=== PATIENT | female | born 1960 | race Caucasian/White ===

== ENCOUNTER → 2018-09-20 | Outpatient (CLI) | payer OTHER ==
--- NOTE | 2018-09-21 09:56 | RAD ---
EXAM DESCRIPTION: Shoulder,Right 2 or More Views CLINICAL HISTORY: M25.511 COMPARISON: None FINDINGS: 4 views of the right shoulder. No acute fracture, dislocation or aggressive bone lesion is present. Bone mineralization appears normal. No erosions are present. No advanced osteoarthritis is present. No gross soft tissue findings. IMPRESSION: Normal. Electronically signed by: Reginaldo Patel MD 09/21/2018 9:54 AM [facility]
--- NOTE | 2018-09-21 10:02 | RAD ---
EXAM DESCRIPTION: Hand,Right 3 Views CLINICAL HISTORY: 57 yearsFemale, M79.641 COMPARISON: None. IMPRESSION: 3 views of the right hand demonstrate no evidence of acute fracture, dislocation, or destructive osseous lesion. No high-grade degenerative changes. No focal soft tissue swelling. If there is persistent anatomic snuffbox tenderness, repeat wrist imaging to include a scaphoid view is recommended in one week to evaluate for occult scaphoid fracture. Electronically signed by: Michele Wisdom MD 09/21/2018 9:59 AM [facility]
== END ==
LOC: RAD 15:44
PROVIDERS: ATTEND Orthopaedic Surgery
DX: M25.511 Pain in right shoulder (principal); M79.641 Pain in right hand

== ENCOUNTER → 2019-09-14 | Outpatient (CLI) | payer OTHER ==
--- NOTE | 2019-09-14 09:04 | MRI ---
Study: MRI of the Right Shoulder. Indication: ROTATOR CUFF SYNDROME Technique: Multiplanar, multi sequence MRI of the right shoulder was obtained without intravenous contrast. Comparison: None. 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 Type II acromion with moderate lateral downsloping. Small-volume subacromial/subdeltoid bursal fluid. High-grade supraspinatus and infraspinatus tendinosis with scattered low-grade interstitial fissuring throughout the insertional and critical zone fibers of both tendons. Subscapularis and teres minor tendons intact. Grade 1 fatty infiltration rotator cuff musculature. Long head biceps tendon intact. Free edge truncation/degeneration of the superior labrum and posterior labrum. Minimal glenohumeral osteoarthritis with a tiny joint effusion. No acute fracture. Impression: Supraspinatus and infraspinatus tendinosis with scattered interstitial fissuring throughout both tendon insertions. Grade 1 fatty infiltration rotator cuff musculature. Free edge truncation and degeneration superior labrum and posterior labrum. Minimal glenohumeral joint osteoarthritis with a tiny joint effusion. 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 Small-volume subacromial/subdeltoid bursal fluid. Electronically signed by: Patrice Degroot MD 09/14/2019 9:03 AM [facility]
== END ==
LOC: MRI 06:56
PROVIDERS: ATTEND Orthopaedic Surgery
DX: Z01.818 Encounter for other preprocedural examination (principal); M75.101 Unspecified rotator cuff tear or rupture of right shoulder, not specified as traumatic; M19.011 Primary osteoarthritis, right shoulder; M67.911 Unspecified disorder of synovium and tendon, right shoulder; M75.91 Shoulder lesion, unspecified, right shoulder; M62.89 Other specified disorders of muscle

== ENCOUNTER 2019-09-24 05:33 | Day surgery (SDC) | payer OTHER ==
[2019-09-24] MEDS ORDERED: SODIUM CHL 0.9% 100ML MINI-BAG 100 ML IVPB ONE (06:43)
[2019-09-24] MEDS ORDERED: MIDAZOLAM INJ 2 MG/2 ML VIAL ONE (07:11)
[2019-09-24] MEDS ORDERED: fentaNYL CITRATE INJ 50 MCG/ML AMP ONE (07:11)
[2019-09-24] MEDS: LACTATED RINGERS 1,000 ML ONE (07:15)
[2019-09-24] MEDS: ceFAZolin SODIUM 1 GM VIAL ONE ×2 (07:39→08:05)
[2019-09-24] MEDS: BUPIVACAINE 0.25% INJ 30 ML VIAL INJ ONE (07:50)
[2019-09-24] MEDS: LIDOCAINE 1% 10 ML VIAL INJ ONE (07:50)
[2019-09-24] MEDS: VANCOMYCIN HCL INJ 1,000 MG VIAL IVPB ONE (08:05)
[2019-09-24 08:58] VITALS: BP 132/81; TEMP 97.8; O2SAT 99
--- NOTE | 2019-09-24 09:07 | OP ---
DATE OF PROCEDURE: 09/24/19 PREOPERATIVE DIAGNOSIS: 1. Left carpal tunnel syndrome. POSTOPERATIVE DIAGNOSIS: 1. Left carpal tunnel syndrome. PROCEDURE: 1. Carpal tunnel release. SURGEON: Jarad Garcia MD. MANAGER CT: Jacinto Peres CST, SA-C. ANESTHESIA: Local with sedation. COMPLICATIONS: None. FINDINGS: Thickening of the transverse carpal ligament. INDICATION: [place] has a history of symptoms consistent with carpal tunnel syndrome. She has had ongoing symptoms for quite some time and has requested operative intervention. After discussing the risks, benefits and alternatives to that, the patient has given informed consent for carpal tunnel release. PROCEDURE: The patient was brought to the Operating Room and placed in the supine position. Sedation was administered and local anesthetic was injected into the operative area under sterile conditions. After the injection of anesthetic, the arm was sterilely prepped and draped. A longitudinal incision was made directly overlying the transverse carpal ligament and blunt dissection was carried down to the ligament. The transverse carpal ligament was sharply transected along its length and a [place] elevator was used to ensure complete release of the ligament. Once release had been confirmed, the wound was thoroughly irrigated and the wound was closed with Nylon suture. A sterile dressing was placed and the patient was taken to the Day Surgery Unit. POSTOPERATIVE PLAN: The patient has been encouraged to do range of motion of the digits and will followup with us in two days. #[id number] MTDD
[2019-09-24] MEDS ORDERED: LIDOCAINE 1% 10 ML VIAL INJ ONE (10:00)
[2019-09-24] MEDS ORDERED: PROPOFOL 200 MG/20 ML VIAL IV ONE (10:00)
== END 2019-09-24 08:50 | disposition home or self-care (01) ==
LOC: AMB 05:33
PROVIDERS: ATTEND Orthopaedic Surgery
DX: G56.02 Carpal tunnel syndrome, left upper limb (principal); Z79.899 Other long term (current) drug therapy